=== PATIENT | female | born 1940 | race Caucasian/White ===

== ENCOUNTER 2016-07-03 08:44 | Day surgery (SDC) | payer MEDICARE, BC ==
--- NOTE | ~2016-07-03 | EGD ---
EGD REPORT [facility] [address] [id number] NAME: RISA ALBARADO : 40 STATUS : REG [facility]#: [id number] AGE: 76 ADM/REG DATE : 07/03/16 MR#: [id number] REPORT SERV DATE: 07/03/16 DICTATED BY: PAUL NEIL DATE: 07/03/16 REPORT STATUS : Draft TRANSCRIBED BY: [facility] DATE: 07/03/16 Endoscopy Center Patient Name: Risa Albarado Date of : 1940 Attending MD: PAUL NEIL MD Procedure Date No Time: 07/03/2016 Procedure: Upper GI endoscopy Indications: Dysphagia, Heartburn, Suspected esophageal reflux Referring MD: GRUPO PELAYO Medicines: as per anesthesia Complications: No immediate complications. Procedure: Pre-Anesthesia Assessment: - ASA Grade Assessment: II - A patient with mild systemic disease. After obtaining informed consent, the endoscope was passed under direct vision. Throughout the procedure, the patient's blood pressure, pulse, and oxygen saturations were monitored continuously. The GIF H190 [id number] was introduced through the mouth, and advanced to the third part of duodenum. The upper GI endoscopy was accomplished without difficulty. The patient tolerated the procedure well. Findings: The examined esophagus was normal. The scope was withdrawn. Dilation was performed with a Servin dilator with no resistance at 44 Fr. The entire examined stomach was normal. The cardia and gastric fundus were normal on retroflexion. The examined duodenum was normal. Impression: - Normal esophagus. Dilated. - Normal stomach. - Normal examined duodenum. Recommendation: - Follow an antireflux regimen. - Continue present medications. Procedure Code(s): --- Professional --- 48285, Esophagogastroduodenoscopy, flexible, transoral; diagnostic, including collection of specimen(s) by brushing or washing, when performed (separate procedure) 03368, Dilation of esophagus, by unguided sound or bougie, single or multiple passes Diagnosis Code(s): --- Professional --- EGD REPORT [facility] [address] [address] NAME: RISA ALBARADO : [birth year] STATUS : REG [facility] [place] [place] PAT#: [id number] AGE: 76 ADM/REG DATE : 07/03/16 MR#: [id number] REPORT SERV DATE: 07/03/16 DICTATED BY: PAUL NEIL. DATE: 07/03/16 REPORT STATUS : Draft TRANSCRIBED BY: [employer] DATE: 07/03/16 R13.10, Dysphagia, unspecified R12, Heartburn CPT copyright 2013 [employer]. All rights reserved. The codes documented in this report are preliminary and upon loan originator review may be revised to meet current compliance requirements. PAUL NEIL MD 07/03/2016 10:10 AM This report has been signed electronically. Number of Addenda: 0 Note Initiated On: 07/03/2016 9:45 AM Scope Withdrawal Time 0 hours 0 minutes 0 seconds [address] [id number]
--- NOTE | ~2016-07-03 | EGD ---
EGD REPORT [facility] [address] [address] NAME: RISA ALBARADO : [birth year] STATUS : REG [facility] [place]#: [id number] AGE: 76 ADM/REG DATE : 07/03/16 MR#: [id number] REPORT SERV DATE: 07/03/16 DICTATED BY: PAUL NEIL DATE: 07/03/16 REPORT STATUS : Draft TRANSCRIBED BY: [facility] DATE: 07/03/16 Endoscopy Center Patient Name: Risa Albarado Date of : 1940 Attending MD: PAUL NEIL MD Procedure Date No Time: 07/03/2016 Procedure: Colonoscopy Indications: FH of Colonic Polyps - 1st degree relative, Fecal incontinence Referring MD: GRUPO PELAYO Medicines: as per anesthesia Complications: No immediate complications. Procedure: Pre-Anesthesia Assessment: - ASA Grade Assessment: II - A patient with mild systemic disease. After I obtained informed consent, the scope was passed under direct vision. Throughout the procedure, the patient's blood pressure, pulse, and oxygen saturations were monitored continuously. The PCF [id number] was introduced through the anus and advanced to the cecum, identified by appendiceal orifice and ileocecal valve. The colonoscopy was somewhat difficult due to restricted mobility of the colon and a tortuous colon. The patient tolerated the procedure. The quality of the bowel preparation was adequate to identify polyps. Findings: The perianal and digital rectal examinations were normal. A sessile polyp was found in the transverse colon. The polyp was 4 mm in size. The polyp was removed with a cold biopsy forceps. Resection and retrieval were complete. A sessile polyp was found in the ascending colon. The polyp was 5 mm in size. The polyp was removed with a cold biopsy forceps. Resection and retrieval were complete. A few small and large-mouthed diverticula were found in the sigmoid colon. Internal hemorrhoids were found during endoscopy and were mild. Impression: - One 4 mm polyp in the transverse colon. Resected and retrieved. - One 5 mm polyp in the ascending colon. Resected and retrieved. - Diverticulosis in the sigmoid colon. - Internal hemorrhoids. EGD REPORT [address] [address] NAME: RISA ALBARADO : [birth year] STATUS : REG [facility] [place] PAT#: [id number] AGE: 76 ADM/REG DATE : 07/03/16 MR#: [id number] REPORT SERV DATE: 07/03/16 DICTATED BY: PAUL NEIL DATE: 07/03/16 REPORT STATUS : Draft TRANSCRIBED BY: [employer] DATE: 07/03/16 Recommendation: - Await pathology results. - Repeat colonoscopy for surveillance based on pathology results. Procedure Code(s): --- Professional --- 15557, Colonoscopy, flexible, proximal to splenic flexure; with biopsy, single or multiple Diagnosis Code(s): --- Professional --- D12.2, Benign neoplasm of ascending colon D12.3, Benign neoplasm of transverse colon K64.8, Other hemorrhoids K57.30, Diverticulosis of large intestine without perforation or abscess without bleeding Z83.71, Family history of colonic polyps R15.9, Full incontinence of feces CPT copyright 2013 [employer]. All rights reserved. The codes documented in this report are preliminary and upon statistical methods teacher review may be revised to meet current compliance requirements. PAUL NEIL MD 07/03/2016 10:35 AM This report has been signed electronically. Number of Addenda: 0 Note Initiated On: 07/03/2016 9:51 AM Scope Withdrawal Time 0 hours 6 minutes 22 seconds [address] [id number]
[~2016-07-03 08:44] MED LIST: ASAB PO; BENTYL10 PO; BUM1 PO; BYSTOLIC10 MG PO; BYSTOLIC5 MG PO; CARASPUDL PO; DIOVAN320 MG PO; EDARBI80 MG PO; HYDROCHLOROT12.5 MG PO; MICRO-K8 MEQ PO; NEXIUM40 PO; PEPTO BISMOL LIQ1 ML PO; PREM625 PO; PREV15 PO; PROTONIX PO; SUCR PO; TEKTURNA HCT1 TAB PO; TOPXL100 PO; Z100 PO; ZOCOR20 PO; ZOFRAN4 PO
== END 2016-07-03 23:59 | disposition home or self-care (01) ==
LOC: DMU 08:44
PROVIDERS: Internal Medicine Gastroenterology
PROC: 0DBL8ZZ Excision of Transverse Colon, Via Natural or Artificial Opening Endoscopic (ICD-10-PCS; principal; 2016-07-03 10:00)
PROC: 0DBK8ZZ Excision of Ascending Colon, Via Natural or Artificial Opening Endoscopic (ICD-10-PCS; 2016-07-03 10:00)
PROC: 0D757ZZ Dilation of Esophagus, Via Natural or Artificial Opening (ICD-10-PCS; 2016-07-03 10:00)
DX: D12.3 Benign neoplasm of transverse colon (principal); D12.2 Benign neoplasm of ascending colon; K57.30 Diverticulosis of large intestine without perforation or abscess without bleeding; K64.8 Other hemorrhoids; K21.9 Gastro-esophageal reflux disease without esophagitis; K29.70 Gastritis, unspecified, without bleeding; I10 Essential (primary) hypertension; E78.00 Pure hypercholesterolemia, unspecified; M10.9 Gout, unspecified; M19.90 Unspecified osteoarthritis, unspecified site; Z86.010 Personal history of colon polyps; Z88.2 Allergy status to sulfonamides; Z83.71 Family history of colonic polyps; Z88.5 Allergy status to narcotic agent; Z88.1 Allergy status to other antibiotic agents; Z88.0 Allergy status to penicillin; Z79.82 Long term (current) use of aspirin; Z79.899 Other long term (current) drug therapy; Z96.1 Presence of intraocular lens; Z98.41 Cataract extraction status, right eye; Z98.42 Cataract extraction status, left eye; Z90.89 Acquired absence of other organs; Z90.710 Acquired absence of both cervix and uterus; Z90.722 Acquired absence of ovaries, bilateral; Z98.890 Other specified postprocedural states
CPT/HCPCS: 88305; A9270-GY; J2405; J2550